=== PATIENT | female | born 1985 | race Caucasian/White ===

== ENCOUNTER 2017-09-30 16:03 | Emergency (ER) | payer OTHER ==
[~2017-09-30] VITALS: Ht 157.5 cm; Wt 99.8 kg
[2017-09-30 16:22] LABS: URINE BILIRUBIN 1+ (Negative); URINE BLOOD NEGATIVE (Negative); URINE CLARITY CLEAR; URINE COLOR YELLOW; URINE GLUCOSE-RANDOM* NEGATIVE (Negative); URINE KETONES NEGATIVE (Negative); URINE LEUKOCYTES NEGATIVE (Negative); URINE NITRITE NEGATIVE (Negative); URINE PROTEIN (DIPSTICK) NEGATIVE (Negative); URINE SPECIFIC GRAVITY 1.025 (1.005-1.035)
[2017-09-30 16:27] LABS: ICTOTEST (BILI CONFIRMATORY) Positive (Negative)
[2017-09-30 16:36] LABS: ABSOLUTE NEUTROPHILS 4.7 thou/uL (1.4-8.2); BASOPHILS 0.6 % (0.0-2.0); EOSINOPHILS 3.1 % (0.0-3.0); HEMATOCRIT 39.2 % (37.0-47.0); HEMOGLOBIN 13.7 gm/dL (12.0-15.0); LYMPHOCYTES 39.9 % (24.0-44.0); MCH 29.6 pg (26.0-34.0); MCHC 34.9 g/dL (28.0-37.0); MCV 84.7 fL (80.0-100.0); MONOCYTES 8.4 % (1.0-8.0); PLATELET COUNT 282 thou/uL (150-400); RBC 4.63 mil/uL (4.20-5.00); RDW 14.2 % (10.5-14.5); WBC 9.7 thou/uL (4.0-11.0)
[2017-09-30 17:19] LABS: CREATININE 0.7 mg/dL (0.6-1.0); POTASSIUM 3.4 mmol/L (3.5-5.1)
[2017-09-30] MEDS ORDERED: NORFLEX100 MG PO (17:22)
[2017-09-30] MEDS ORDERED: NAPROSYN500 MG PO (17:22)
[2017-09-30 17:30] LABS: ALBUMIN 3.5 g/dL (3.4-5.0); TOTAL BILIRUBIN 1.5 mg/dL (<0.1-1.0); TOTAL PROTEIN 7.7 g/dL (6.4-8.2)
== END 2017-09-30 17:36 | disposition home or self-care (01) ==
LOC: ER 16:03
PROVIDERS: Physician Assistant
DX: R94.5 Abnormal results of liver function studies (principal); S39.012A Strain of muscle, fascia and tendon of lower back, initial encounter; F17.210 Nicotine dependence, cigarettes, uncomplicated; X50.1XXA Overexertion from prolonged static or awkward postures, initial encounter; Y93.89 Activity, other specified; Y92.89 Other specified places as the place of occurrence of the external cause; Y99.8 Other external cause status

== ENCOUNTER 2017-12-18 07:57 | Emergency (ER) | payer OTHER ==
[~2017-12-18] VITALS: Ht 160 cm; Wt 99.8 kg
[~2017-12-18 07:57] MED LIST: NAPROSYN500 MG PO; NORFLEX100 MG PO
[2017-12-18] MEDS ORDERED: DOXYCYCLINE 10100 MG PO (08:15)
[2017-12-18] MEDS ORDERED: METHADOSE40 M1 PO (08:22)
== END 2017-12-18 08:59 | disposition home or self-care (01) ==
LOC: ER 07:57
DX: L03.114 Cellulitis of left upper limb (principal); F17.210 Nicotine dependence, cigarettes, uncomplicated

== ENCOUNTER 2018-03-16 08:04 | Emergency (ER) | payer OTHER ==
[~2018-03-16] VITALS: Ht 160 cm; Wt 99.8 kg
[~2018-03-16 08:04] MED LIST changes: +DOXYCYCLINE 10100 MG PO; +METHADOSE40 M1 PO
[2018-03-16 08:08] VITALS: BP 119/77
[2018-03-16] MEDS ORDERED: DOXYCYCLINE 10100 MG PO (08:21)
== END 2018-03-16 08:38 | disposition home or self-care (01) ==
LOC: ER 08:04
DX: L03.114 Cellulitis of left upper limb (principal); F17.210 Nicotine dependence, cigarettes, uncomplicated

== ENCOUNTER 2018-04-03 11:34 | Emergency (ER) | payer OTHER ==
[~2018-04-03] VITALS: Ht 160 cm; Wt 104.3 kg
[2018-04-03] MEDS ORDERED: CIPRODEX OTIC7.5 ML OTIC (11:51)
[2018-04-03] MEDS ORDERED: IBUPROFEN 800800 M1 PO (11:51)
[2018-04-03 11:59] VITALS: BP 123/72
== END 2018-04-03 12:18 | disposition home or self-care (01) ==
LOC: ER 11:34
DX: H60.91 Unspecified otitis externa, right ear (principal); F17.210 Nicotine dependence, cigarettes, uncomplicated

== ENCOUNTER 2018-05-22 18:00 | Emergency (ER) | payer OTHER ==
[~2018-05-22] VITALS: Ht 160 cm; Wt 91.6 kg
[~2018-05-22 18:00] MED LIST changes: +CIPRODEX OTIC7.5 ML OTIC; +IBUPROFEN 800800 M1 PO
[2018-05-22 18:09] VITALS: BP 137/87
== END 2018-05-22 20:44 | disposition home or self-care (01) ==
LOC: ER 18:00
DX: L02.411 Cutaneous abscess of right axilla (principal); F17.210 Nicotine dependence, cigarettes, uncomplicated

== ENCOUNTER 2018-07-31 08:38 | Emergency (ER) | payer OTHER ==
[~2018-07-31] VITALS: Ht 160 cm; Wt 90.7 kg
[2018-07-31 09:02] LABS: URINE BILIRUBIN NEGATIVE (Negative); URINE BLOOD 1+ (Negative); URINE CLARITY CLOUDY; URINE COLOR YELLOW; URINE GLUCOSE-RANDOM* NEGATIVE (Negative); URINE KETONES NEGATIVE (Negative); URINE PROTEIN (DIPSTICK) TRACE (Negative); URINE UROBILINOGEN 0.2 E.U./dl (0.2-1.0)
[2018-07-31 09:03] LABS: URINE LEUKOCYTES-REFLEX 3+ (Negative); URINE NITRITE-REFLEX POSITIVE (Negative)
[2018-07-31 09:07] LABS: CASTS None Seen /LPF (None Seen); CRYSTALS None Seen /LPF (None Seen); SQUAMOUS 4-10 Moderate /LPF (0-3); URINE WBC-REFLEX >25 Many /HPF (0-5)
[2018-07-31 09:08] LABS: BACTERIA-REFLEX >30 Many /HPF (None Seen); URINE RBC 0-2 Rare /HPF (0-2)
[2018-07-31] MEDS ORDERED: MACROBID 100 M100 M1 PO (09:24)
== END 2018-07-31 09:59 | disposition home or self-care (01) ==
LOC: ER 08:38
PROVIDERS: Student in an Organized Health Care Education/Training Program
DX: N39.0 Urinary tract infection, site not specified (principal); F17.210 Nicotine dependence, cigarettes, uncomplicated

== ENCOUNTER 2018-09-05 10:37 | Emergency (ER) | payer OTHER ==
[~2018-09-05] VITALS: Ht 160 cm; Wt 90.7 kg
[~2018-09-05 10:37] MED LIST changes: +MACROBID 100 M100 M1 PO
[2018-09-05 11:36] LABS: URINE BILIRUBIN NEGATIVE (Negative); URINE BLOOD TRACE (Negative); URINE CLARITY CLEAR; URINE COLOR YELLOW; URINE GLUCOSE-RANDOM* NEGATIVE (Negative); URINE KETONES NEGATIVE (Negative); URINE PROTEIN (DIPSTICK) TRACE (Negative); URINE SPECIFIC GRAVITY 1.015 (1.005-1.035)
[2018-09-05 11:37] LABS: URINE LEUKOCYTES-REFLEX 3+ (Negative); URINE NITRITE-REFLEX POSITIVE (Negative)
[2018-09-05 11:42] LABS: BACTERIA-REFLEX >30 Many /HPF (None Seen); CASTS None Seen /LPF (None Seen); CRYSTALS None Seen /LPF (None Seen); SQUAMOUS 0-3 Few /LPF (0-3); URINE RBC 0-2 Rare /HPF (0-2); WBC CLUMPS Moderate (None Seen)
[2018-09-05 12:31] LABS: ABSOLUTE NEUTROPHILS 2.9 thou/uL (1.4-8.2); BASOPHILS 0.4 % (0.0-2.0); EOSINOPHILS 3.3 % (0.0-3.0); HEMATOCRIT 39.7 % (37.0-47.0); HEMOGLOBIN 13.8 gm/dL (12.0-15.0); LYMPHOCYTES 43.4 % (24.0-44.0); MCH 29.5 pg (26.0-34.0); MCHC 34.7 g/dL (28.0-37.0); MCV 85.1 fL (80.0-100.0); MONOCYTES 8.7 % (1.0-8.0); PLATELET COUNT 319 thou/uL (150-400); POLYS 44.2 % (36.0-66.0); RBC 4.66 mil/uL (4.20-5.00); RDW 14.2 % (10.5-14.5); WBC 6.5 thou/uL (4.0-11.0)
[2018-09-05 12:40] LABS: CREATININE 0.6 mg/dL (0.6-1.0)
[2018-09-05] MEDS ORDERED: FLAGYL500 M1 PO (14:46)
[2018-09-05] MEDS ORDERED: PRENATAL ONE T1 EACH PO (14:46)
[2018-09-05] MEDS ORDERED: KEFLEX500 M1 PO (14:47)
[2018-09-05 14:53] VITALS: BP 117/84
== END 2018-09-05 15:07 | disposition home or self-care (01) ==
LOC: ER 10:37
PROVIDERS: Physician Assistant
DX: O23.41 Unspecified infection of urinary tract in pregnancy, first trimester (principal); N76.0 Acute vaginitis; B96.89 Other specified bacterial agents as the cause of diseases classified elsewhere; F17.210 Nicotine dependence, cigarettes, uncomplicated; Z3A.01 Less than 8 weeks gestation of pregnancy

== ENCOUNTER 2018-10-02 18:13 | Emergency (ER) | payer OTHER ==
[~2018-10-02] VITALS: Ht 160 cm; Wt 90.7 kg
[~2018-10-02 18:13] MED LIST changes: +FLAGYL500 M1 PO; +KEFLEX500 M1 PO; +PRENATAL ONE T1 EACH PO
[2018-10-02 18:46] LABS: URINE CLARITY CLEAR; URINE COLOR YELLOW
[2018-10-02 18:47] LABS: URINE BILIRUBIN NEGATIVE (Negative); URINE BLOOD 1+ (Negative); URINE GLUCOSE-RANDOM* NEGATIVE (Negative); URINE KETONES NEGATIVE (Negative); URINE LEUKOCYTES-REFLEX NEGATIVE (Negative); URINE NITRITE-REFLEX NEGATIVE (Negative); URINE PROTEIN (DIPSTICK) NEGATIVE (Negative); URINE SPECIFIC GRAVITY 1.025 (1.005-1.035); URINE UROBILINOGEN 0.2 E.U./dl (0.2-1.0)
[2018-10-02 18:48] LABS: BASOPHILS 0.7 % (0.0-2.0); EOSINOPHILS 0.9 % (0.0-3.0); HEMATOCRIT 38.3 % (37.0-47.0); HEMOGLOBIN 13.3 gm/dL (12.0-15.0); LYMPHOCYTES 34.2 % (24.0-44.0); MCH 29.3 pg (26.0-34.0); MCHC 34.6 g/dL (28.0-37.0); MCV 84.6 fL (80.0-100.0); MONOCYTES 5.9 % (1.0-8.0); PLATELET COUNT 347 thou/uL (150-400); POLYS 58.3 % (36.0-66.0); RBC 4.53 mil/uL (4.20-5.00); RDW 13.8 % (10.5-14.5); WBC 12.1 thou/uL (4.0-11.0)
[2018-10-02 18:50] LABS: SQUAMOUS 4-10 Moderate /LPF (0-3); URINE RBC 0-2 Rare /HPF (0-2); URINE WBC-REFLEX 0-5 Rare /HPF (0-5)
[2018-10-02 18:51] LABS: CASTS None Seen /LPF (None Seen); CRYSTALS None Seen /LPF (None Seen)
[2018-10-02 18:57] LABS: CALCIUM 9.4 mg/dL (8.5-10.1); CREATININE 0.6 mg/dL (0.6-1.0); POTASSIUM 3.3 mmol/L (3.5-5.1)
[2018-10-02 19:29] LABS: URINE BILIRUBIN NEGATIVE (Negative); URINE BLOOD TRACE (Negative); URINE CLARITY CLEAR; URINE COLOR YELLOW; URINE GLUCOSE-RANDOM* NEGATIVE (Negative); URINE KETONES NEGATIVE (Negative); URINE NITRITE-REFLEX NEGATIVE (Negative); URINE PROTEIN (DIPSTICK) NEGATIVE (Negative); URINE SPECIFIC GRAVITY 1.015 (1.005-1.035); URINE UROBILINOGEN 0.2 E.U./dl (0.2-1.0)
[2018-10-02 19:30] LABS: URINE LEUKOCYTES-REFLEX NEGATIVE (Negative)
[2018-10-02 21:15] VITALS: BP 126/67
== END 2018-10-02 21:16 | disposition home or self-care (01) ==
LOC: ER 18:13
PROVIDERS: Physician Assistant
DX: O20.0 Threatened abortion (principal); F17.210 Nicotine dependence, cigarettes, uncomplicated; Z3A.10 10 weeks gestation of pregnancy

== ENCOUNTER 2019-01-28 15:26 | Emergency (ER) | payer OTHER ==
[~2019-01-28] VITALS: Ht 160 cm; Wt 102.5 kg
[2019-01-28 15:28] VITALS: BP 135/69
[2019-01-28 15:51] LABS: URINE BILIRUBIN NEGATIVE (Negative); URINE BLOOD NEGATIVE (Negative); URINE CLARITY SL CLOUDY; URINE COLOR YELLOW; URINE GLUCOSE-RANDOM* NEGATIVE (Negative); URINE KETONES NEGATIVE (Negative); URINE LEUKOCYTES-REFLEX TRACE (Negative); URINE NITRITE-REFLEX NEGATIVE (Negative); URINE PROTEIN (DIPSTICK) NEGATIVE (Negative)
== END 2019-01-28 18:01 | disposition home or self-care (01) ==
LOC: ER 15:26
PROVIDERS: Physician Assistant
DX: O99.89 Other specified diseases and conditions complicating pregnancy, childbirth and the puerperium (principal); R46.89 Other symptoms and signs involving appearance and behavior; O99.333 Smoking (tobacco) complicating pregnancy, third trimester; Z3A.28 28 weeks gestation of pregnancy

== ENCOUNTER 2019-03-06 18:50 | Emergency (ER) | payer OTHER ==
[~2019-03-06] VITALS: Ht 160 cm; Wt 99.3 kg
[2019-03-06 19:44] LABS: URINE BILIRUBIN NEGATIVE (Negative); URINE BLOOD NEGATIVE (Negative); URINE CLARITY CLEAR; URINE COLOR YELLOW; URINE GLUCOSE-RANDOM* NEGATIVE (Negative); URINE KETONES NEGATIVE (Negative); URINE LEUKOCYTES-REFLEX NEGATIVE (Negative); URINE NITRITE-REFLEX NEGATIVE (Negative); URINE PROTEIN (DIPSTICK) NEGATIVE (Negative); URINE SPECIFIC GRAVITY 1.025 (1.005-1.035)
[2019-03-06 20:42] VITALS: BP 125/69
== END 2019-03-06 21:07 | disposition home or self-care (01) ==
LOC: ER 18:50
PROVIDERS: Nurse Practitioner
DX: Z34.03 Encounter for supervision of normal first pregnancy, third trimester (principal); F17.210 Nicotine dependence, cigarettes, uncomplicated

== ENCOUNTER 2019-04-17 01:58 | Emergency (ER) | payer OTHER ==
[~2019-04-17] VITALS: Ht 160 cm; Wt 97.1 kg
[2019-04-17 02:57] LABS: URINE BILIRUBIN 1+ (Negative); URINE BLOOD 3+ (Negative); URINE CLARITY SL CLOUDY; URINE COLOR YELLOW; URINE GLUCOSE-RANDOM* NEGATIVE (Negative); URINE KETONES NEGATIVE (Negative); URINE NITRITE-REFLEX NEGATIVE (Negative); URINE PROTEIN (DIPSTICK) 1+ (Negative); URINE UROBILINOGEN >= 8.0 E.U./dl (0.2-1.0)
[2019-04-17 02:59] LABS: ICTOTEST (BILI CONFIRMATORY) Positive (Negative); URINE LEUKOCYTES-REFLEX 1+ (Negative)
[2019-04-17 03:03] LABS: AMORPHOUS URATES Few /LPF (None Seen); CASTS None Seen /LPF (None Seen); MUCUS 0-3 Light strn/LPF (None Seen); SQUAMOUS >10 Many /LPF (0-3)
[2019-04-17 03:04] LABS: BACTERIA-REFLEX 1-9 Few /HPF (None Seen); CRYSTALS None Seen /LPF (None Seen); URINE RBC 3-10 Few /HPF (0-2); URINE WBC-REFLEX 6-15 Few /HPF (0-5)
[2019-04-17 03:04] LABS: BASOPHILS 0.4 % (0.0-2.0); EOSINOPHILS 1.3 % (0.0-3.0); HEMATOCRIT 35.2 % (37.0-47.0); HEMOGLOBIN 11.6 gm/dL (12.0-15.0); MCH 27.1 pg (26.0-34.0); MCHC 33.1 g/dL (28.0-37.0); PLATELET COUNT 480 thou/uL (150-400); POLYS 73.3 % (36.0-66.0); RBC 4.29 mil/uL (4.20-5.00); RDW 15.2 % (10.5-14.5); WBC 8.2 thou/uL (4.0-11.0)
[2019-04-17 03:12] LABS: CALCIUM 8.7 mg/dL (8.5-10.1); CREATININE 0.8 mg/dL (0.6-1.0); POTASSIUM 3.4 mmol/L (3.5-5.1)
[2019-04-17 03:18] LABS: ALBUMIN 3.2 g/dL (3.4-5.0); DIRECT BILIRUBIN 0.4 mg/dL (<0.1-0.3); TOTAL BILIRUBIN 0.7 mg/dL (<0.1-1.0); TOTAL PROTEIN 7.6 g/dL (6.4-8.2)
[2019-04-17] MEDS ORDERED: NORCO 5-325 TA1 EAC1 PO (06:08)
[2019-04-17 06:32] VITALS: BP 128/83
== END 2019-04-17 06:33 | disposition home or self-care (01) ==
LOC: ER 01:58
PROVIDERS: Emergency Medicine
DX: K80.20 Calculus of gallbladder without cholecystitis without obstruction (principal); F17.210 Nicotine dependence, cigarettes, uncomplicated

== ENCOUNTER 2019-04-26 00:16 | Inpatient (IN) | payer OTHER ==
[~2019-04-26] VITALS: Ht 160 cm; Wt 96.2 kg
[2019-04-26] VITALS (8 sets, daily range): BP systolic 141–161; BP diastolic 82–99
[~2019-04-26 00:16] MED LIST changes: +NORCO 5-325 TA1 EAC1 PO
[2019-04-26 00:45] LABS: URINE BILIRUBIN NEGATIVE (Negative); URINE BLOOD TRACE (Negative); URINE CLARITY CLEAR; URINE COLOR YELLOW; URINE GLUCOSE-RANDOM* NEGATIVE (Negative); URINE KETONES NEGATIVE (Negative); URINE NITRITE-REFLEX NEGATIVE (Negative); URINE PROTEIN (DIPSTICK) NEGATIVE (Negative); URINE SPECIFIC GRAVITY <= 1.005 (1.005-1.035); URINE UROBILINOGEN 0.2 E.U./dl (0.2-1.0)
[2019-04-26 00:46] LABS: URINE LEUKOCYTES-REFLEX 1+ (Negative)
[2019-04-26 00:54] LABS: CASTS None Seen /LPF (None Seen); SQUAMOUS 0-3 Few /LPF (0-3); URINE WBC-REFLEX 6-15 Few /HPF (0-5)
[2019-04-26 00:55] LABS: CRYSTALS None Seen /LPF (None Seen); URINE RBC 0-2 Rare /HPF (0-2)
[2019-04-26 01:01] LABS: ABSOLUTE NEUTROPHILS 4.6 thou/uL (1.4-8.2); BASOPHILS 0.5 % (0.0-2.0); EOSINOPHILS 2.2 % (0.0-3.0); HEMOGLOBIN 11.6 gm/dL (12.0-15.0); LYMPHOCYTES 41.9 % (24.0-44.0); MCH 26.9 pg (26.0-34.0); MCV 81.5 fL (80.0-100.0); MONOCYTES 6.9 % (1.0-8.0); PLATELET COUNT 414 thou/uL (150-400); POLYS 48.5 % (36.0-66.0); RBC 4.29 mil/uL (4.20-5.00); RDW 15.4 % (10.5-14.5); WBC 9.5 thou/uL (4.0-11.0)
[2019-04-26 01:09] LABS: ANION GAP 10 mmol/L (7-16); BUN 11 mg/dL (7-18); CALCIUM 8.6 mg/dL (8.5-10.1); CHLORIDE 103 mmol/L (98-107); CO2 30 mmol/L (21-32); CREATININE 0.8 mg/dL (0.6-1.0); GLUCOSE 93 mg/dL (74-106); POTASSIUM 3.2 mmol/L (3.5-5.1); SODIUM 143 mmol/L (136-145)
[2019-04-26 01:19] LABS: ALBUMIN 3.4 g/dL (3.4-5.0); LIPASE 103 U/L (73-393); SGOT 71 U/L (15-37); SGPT 53 U/L (30-65); TOTAL BILIRUBIN 0.3 mg/dL (<0.1-1.0); TOTAL PROTEIN 7.6 g/dL (6.4-8.2); TROPONIN-I <0.06 ng/mL (<0.06)
--- NOTE | 2019-04-26 08:50 | EKG ---
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1985 Requested By: Leopoldo Schulz Order Number: [id number] MD: Alcon Jaffe Measurements Intervals [place] Rate: 81 P: 51 OK: 162 QRS: 25 QRSD: 97 T: 36 QT: 417 QTc: 484 Interpretive Statements Sinus rhythm No significant abnormality No previous ECG available for comparison Electronically Signed On 04-26-2019 8:50:43 CDT by Alcon Jaffe [email or web address] ��������������������������������������������� <ELECTRONICALLY SIGNED> ���������������������������������������� By: Alcon Jaffe MD, [facility] ��������������������������������������������� 04/26/19 0850 0101 0 Alcon Jaffe MD, FACC /EPI
--- NOTE | 2019-04-26 08:50 | EKG ---
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1985 Requested By: Leopoldo Schulz Order Number: [id number] MD: Alcon Jaffe Measurements Intervals [place] Rate: 79 P: 62 HI: 175 QRS: 14 QRSD: 96 T: 42 QT: 427 QTc: 490 Interpretive Statements Sinus rhythm No significant abnormality No ECG available for comparison Electronically Signed On 04-26-2019 8:50:04 CDT by Alcon Jaffe [email or web address] ��������������������������������������������� <ELECTRONICALLY SIGNED> ���������������������������������������� By: Alcon Jaffe MD, [facility] ��������������������������������������������� 04/26/19 0850 0049 0049 Alcon Jaffe MD, FACC /EPI
[2019-04-27 04:10] VITALS: BP 148/89
[2019-04-27 05:41] LABS: HEMATOCRIT 35.4 % (37.0-47.0); HEMOGLOBIN 11.6 gm/dL (12.0-15.0); MCH 26.5 pg (26.0-34.0); MCHC 32.7 g/dL (28.0-37.0); MCV 81.3 fL (80.0-100.0); RBC 4.36 mil/uL (4.20-5.00); RDW 15.9 % (10.5-14.5); WBC 10.2 thou/uL (4.0-11.0)
[2019-04-27 06:06] LABS: CALCIUM 8.8 mg/dL (8.5-10.1); CREATININE 0.5 mg/dL (0.6-1.0); POTASSIUM 4.1 mmol/L (3.5-5.1); TOTAL BILIRUBIN 0.4 mg/dL (<0.1-1.0)
[2019-04-27 07:06] VITALS: BP 146/78
--- NOTE | 2019-04-27 08:29 | NUR ---
PATIENT ARRIVED ON UNIT AT 1930 VIA BED FROM OR. PATIENT ALERT AND ORIENTED BUT VERY SAD. PATIENT CRYING OFF AND ON DURING NIGHT. MISSES HER CHILDREN. HAD LAST CHILD A MONTH AGO. FOUR SMALL INCISIONS ON ABD WITH DERMABOND. C/O PAIN, MED GIVEN. NPO SINCE [place] FOR ERCP TODAY. MOUTH DRY, GIVEN SWABS TO WET MOUTH. UP TO BATHROOM WITH SBA. PASSING FLATUS. SLEPT OFF AND ON DURING NIGHT.
[2019-04-27 14:41] VITALS: BP 146/78
[2019-04-27 15:06] VITALS: BP 146/78
--- NOTE | 2019-04-27 18:33 | NUR ---
DC ODERS RECEIVED. IV REMOVED FROM R AC, FOLLOW UP INSTRUCTIONS REVEIWED WITH PT. PT TRANSPORTED BY W/C TO MAIN ENTRANCE.
--- NOTE | 2019-04-28 06:26 | O ---
[facility] [place] [address] OPERATIVE REPORT Name: STACY BLUE Room #: 432-P [facility] IN M.R.#: [id number] Admission: 04/26/19 ������������������ Attend Phys: Gabrielle Yepez MD Discharge: 04/27/19 ������������������ Date of : 87 Report #: [id number] THIS REPORT FOR: //name// CC: Fran ZAMORA PCP DATE OF SERVICE: 04/26/2019 PREOPERATIVE DIAGNOSIS: Acute cholecystitis. POSTOPERATIVE DIAGNOSIS: Acute cholecystitis with choledocholithiasis. PROCEDURE: Laparoscopic cholecystectomy with intraoperative cholangiogram. SURGEON: Onesimo Joseph MD ANESTHESIA: General. ESTIMATED BLOOD LOSS: Minimal. SPECIMEN: Gallbladder. DESCRIPTION OF PROCEDURE: After informed consent was obtained, the patient was brought to the operating room and placed supine. SCDs were placed and working, preoperative antibiotics were administered, general anesthesia was induced. The abdomen was prepped and draped in the usual sterile fashion. A 10 mm incision was made below the umbilicus. Fascia was incised and a trocar was placed. Pneumoperitoneum was established. Three right upper quadrant 5 mm ports were placed. Gallbladder was grasped at the fundus and retracted cephalad. Infundibulum was grasped and retracted laterally. I dissected out the cystic duct and cystic artery. Cystic duct was clipped. Ductotomy was made. Cholangiogram catheter was inserted. Cholangiogram was performed. This demonstrated filling of the cystic duct, common bile duct, bifurcation of the hepatics, a dilated common bile duct and a filling defect in the distal common bile duct. The cholangiogram catheter was removed. The cystic duct was ligated with leaving 2 clips on the remaining duct. The cystic artery was clipped and ligated leaving one clip on the remaining artery. Gallbladder was then taken off the liver bed with electrocautery. It was placed into an Endopouch and removed. The fascia was then closed with a [id number] 0 Vicryl. Skin was closed with 4-0 Monocryl. Incisions were sealed with Dermabond. COMPLICATIONS: None. [facility] [address] [place] [address] OPERATIVE REPORT Name: STACY BLUE Room #: 432-P [facility] IN .R.#: [id number] Admission: 04/26/19 ������������������ Attend Phys: Gabrielle Yepez MD Discharge: 04/27/19 ������������������ Date of : 87 Report #: [id number] DISPOSITION: The patient was taken to recovery in satisfactory condition. ��������������������������������������������� <ELECTRONICALLY SIGNED> ���������������������������������������� By: Onesimo Joseph MD ��������������������������������������������� 04/28/19 0626 1810 12 Onesimo Joseph MD /nt
--- NOTE | 2019-04-28 14:43 | PATH ---
[facility] [address] [place] [address] PATHOLOGY RPT PROCEDURE Name: STACY KRUGER Room #: 432-P [facility] IN M.R.#: [id number] ������������������ Admission: 04/26/19 ������������������ Date of : 87 Discharge: 04/27/19 Report #: [id number] Path Case #: [id number] [facility] Accession Number: [id number] . 01 Material submitted: . gallbladder - GALLBLADDER . 01 Clinical history: . Acute cholecystitis . 02 Diagnosis: Gallbladder, cholecystectomy: - Mild chronic cholecystitis. - Cholelithiasis. - Incidental reactive lymph node. (IUV/db; 04/28/2019) LBQ/04/28/2019 . 02 Electronically signed: . Aleida Metzger MD, Pathologist NPI- [id number] . 01 Gross description: . The specimen is received in formalin labeled "Stacy Kruger, gallbladder" and consists of an intact green-mcneal, smooth, and shiny gallbladder measuring 12.8 cm in length and up to 4.5 cm in diameter. The margin is inked black. Opening reveals a lumen filled with viscous green bile and multiple yellow multifaceted calculi measuring between 1.0 and 0.9 cm (8.5 x 6.5 x 1.0 cm in aggregate). The mucosa is green with scattered yellow flecks with an average wall thickness of 0.1 cm. No masses are identified. Adjacent the gallbladder neck is a disrupted lymph node candidate measuring 0.8 x 0.7 cm. [employer] sections are submitted in A1. (SDY; 04/27/2019) SYU/SYU . 02 Pathologist provided ICD-10: K80.10 . 02 CPT . 237458 Specimen Comment: A courtesy copy of this report has been sent to Specimen Comment: [phone], . Specimen Comment: Report sent to / DR EASLEY Performed at: [address] [facility], [place] [id number] [place] [address] PATHOLOGY RPT PROCEDURE Name: STACY KRUGER MEGAN Room #: 432-P [facility] IN M.R.#: [id number] ������������������ Admission: 04/26/19 ������������������ Date of : 87 Discharge: 04/27/19 Report #: [id number] Path Case #: [id number] MD Moiz Slade MD Phone: [phone] Performed at: [address] [id number] MD Aleida Metzger MD Phone: [phone]
== END 2019-04-27 15:36 | disposition home or self-care (01) | DRG 418 ==
LOC: ER 00:16 → EROBS 02:50 → 4E 02:50 → EROBS 07:23 → TBA 16:22 → 4E 19:53
PROVIDERS: Emergency Medicine; Nurse Practitioner Family; ADMIT Internal Medicine
PROC: BF131ZZ Fluoroscopy of Gallbladder and Bile Ducts using Low Osmolar Contrast (ICD-10-PCS; principal; 2019-04-26)
PROC: 0FT44ZZ Resection of Gallbladder, Percutaneous Endoscopic Approach (ICD-10-PCS; principal; 2019-04-26)
DX: K80.62 Calculus of gallbladder and bile duct with acute cholecystitis without obstruction (principal); N39.0 Urinary tract infection, site not specified; F11.20 Opioid dependence, uncomplicated; F17.210 Nicotine dependence, cigarettes, uncomplicated; Z79.899 Other long term (current) drug therapy
CPT/HCPCS: 10084; 50010; 50101; 50411; 50555; 51489; 51975; 52265; 52266; 53307; 53314; 54118; 55245; 55317; 56462; 56525; 56526; 62110; 62900; 70005

== ENCOUNTER 2019-04-29 19:49 | Inpatient (IN) | payer OTHER ==
[~2019-04-29] VITALS: Ht 160 cm; Wt 97.1 kg
[~2019-04-29 19:49] MED LIST changes: -ONDANSETRON HCL4 M2 PO; -PROTONIX40 M1 PO
[2019-04-29 19:52] VITALS: BP 183/96
[2019-04-29 21:15] LABS: ABSOLUTE NEUTROPHILS 8.3 thou/uL (1.4-8.2); BASOPHILS 0.4 % (0.0-2.0); EOSINOPHILS 0.4 % (0.0-3.0); HEMATOCRIT 36.3 % (37.0-47.0); HEMOGLOBIN 12.1 gm/dL (12.0-15.0); LYMPHOCYTES 10.4 % (24.0-44.0); MCH 26.9 pg (26.0-34.0); MCHC 33.2 g/dL (28.0-37.0); MCV 81.1 fL (80.0-100.0); MONOCYTES 2.8 % (1.0-8.0); PLATELET COUNT 415 thou/uL (150-400); RBC 4.48 mil/uL (4.20-5.00); RDW 15.6 % (10.5-14.5); WBC 9.7 thou/uL (4.0-11.0)
[2019-04-29 21:25] LABS: CALCIUM 8.9 mg/dL (8.5-10.1); CREATININE 0.6 mg/dL (0.6-1.0)
[2019-04-29 21:32] LABS: ALBUMIN 3.2 g/dL (3.4-5.0); TOTAL BILIRUBIN 0.3 mg/dL (<0.1-1.0); TOTAL PROTEIN 7.4 g/dL (6.4-8.2)
[2019-04-29 22:31] VITALS: BP 183/96
[2019-04-29 22:36] VITALS: BP 165/89
[2019-04-29 23:00] VITALS: BP 185/100
[2019-04-29 23:10] LABS: URINE BILIRUBIN NEGATIVE (Negative); URINE BLOOD NEGATIVE (Negative); URINE CLARITY CLEAR; URINE COLOR YELLOW; URINE GLUCOSE-RANDOM* NEGATIVE (Negative); URINE KETONES NEGATIVE (Negative); URINE LEUKOCYTES-REFLEX NEGATIVE (Negative); URINE NITRITE-REFLEX NEGATIVE (Negative); URINE PROTEIN (DIPSTICK) NEGATIVE (Negative); URINE UROBILINOGEN 0.2 E.U./dl (0.2-1.0)
--- NOTE | 2019-04-30 04:42 | NUR ---
PATIENT ARRIVED ON UNIT AT 2300, VIA CART FROM ED ACCOMPANIED BY ED PERSONEL. PATIENT DROWSY BUT ORIENTED X4. C/O PAIN IN ABD AND BACK. MED GIVEN. C/O NAUSEA AND VOMITING, MED GIVEN. STATES MEDS DON'T LAST VERY LONG. PATIENT UP WITH ASSIST. SLEPT OFF AND ON DURING NIGHT.
[2019-04-30 05:20] LABS: CALCIUM 8.7 mg/dL (8.5-10.1); CREATININE 0.6 mg/dL (0.6-1.0); POTASSIUM 3.3 mmol/L (3.5-5.1)
[2019-04-30 16:11] VITALS: BP 130/90
--- NOTE | 2019-04-30 17:47 | NUR ---
PT A&OX4, AMBULATES SELF IN ROOM. IV RESTARTED IN R FA. PT HAVING NAUSEA AND ABD PAIN. PT ON A HIGH DOSE OF METHADONE [address] SOLO TRIED TO EXPLAIN TO PT SHE CAN NOT HAVE HER METHADONE AND PAIN MEDS, PT WAS GIVEN A CHOICE OF PAIN OR METHADONE, PT CHOSE HER METHADONE. HER SISTER AND KIDS VISITED TODAY. PT STARTED ON PRTONIX, TRAMADOL ALSO ORDERED PRN.WILL CONT POC.
[2019-04-30 20:05] VITALS: BP 161/108
--- NOTE | 2019-05-01 05:37 | NUR ---
A/O, calm and cooperative. complains of gas floating in stomache. [employer] PROFESSOR called and medication given, patient has been staying in bed with eyes closed. vss, afebrile.
[2019-05-01 07:22] VITALS: BP 137/83
[2019-05-01] MEDS ORDERED: PROTONIX40 M1 PO (08:59)
[2019-05-01] MEDS ORDERED: ONDANSETRON HCL4 M2 PO (08:59)
[2019-05-01 11:25] VITALS: BP 137/83
== END 2019-05-01 12:38 | disposition home or self-care (01) | DRG 439 ==
LOC: ER 19:49 → EROBS 21:51 → 4E 22:55
PROVIDERS: Emergency Medicine; Nurse Practitioner Family; ADMIT Hospitalist
DX: K85.90 Acute pancreatitis without necrosis or infection, unspecified (principal); F11.20 Opioid dependence, uncomplicated; F17.210 Nicotine dependence, cigarettes, uncomplicated; Z90.49 Acquired absence of other specified parts of digestive tract
CPT/HCPCS: 10084

== ENCOUNTER → 2019-04-29 | Outpatient (CLI) | payer OTHER ==
[~2019-04-29] MED LIST changes: +ONDANSETRON HCL4 M2 PO; +PROTONIX40 M1 PO
--- NOTE | ~2019-04-29 | P ---
[facility] [place] [address] PROCEDURE REPORT Name: STACY BLUE Room #: [facility]#: [id number] Admission: 04/29/19 ������������������ Attend Phys: Ney Lai Discharge: ������������������ Date of : [birth year] Report #: [id number] THIS REPORT FOR: //name// CC: Ney Alcazar [facility] physician/PCP Onesimo Joseph MD DATE OF SERVICE: 04/29/2019 PROCEDURE PERFORMED: ERCP with sphincterotomy and balloon sweeps. HISTORY OF PRESENT ILLNESS: The patient is a 33-year-old female who was admitted on 04/26/2019 for right upper quadrant abdominal pain. She underwent an ultrasound of the abdomen with cholelithiasis and increased common bile duct prominence noted. A CT scan of the abdomen was also performed on 04/26/2019 showing no obvious common bile duct stone. No acute changes. The patient underwent a laparoscopic cholecystectomy by Dr. Onesimo Joseph on 04/26/2019. Intraoperative cholangiogram showed a solitary mobile distal common bile duct stone, 4-5 mm, presumably choledocholithiasis. Because of this, plan is for ERCP. Of note, the patient's bilirubin has been normal throughout this time. DESCRIPTION OF PROCEDURE: The risks and benefits of the procedure were explained to the patient, those risks including, but not limited to bleeding, perforation, the risk of sedation as well as the potential risk for posterior superior pancreatitis. She understood these risks and gave informed consent. The procedure was performed in the OR under general anesthesia. The patient was given 1 gram of Ancef prior to the procedure. Her test was negative today. She was also given 50 mg indomethacin rectal suppository prior to the procedure. Next, using an Olympus side-viewing ERCP scope, the scope was placed in the patient's mouth and advanced under direct vision through the esophagus, stomach and into the second portion at which point, the major papilla was identified and normal in appearance. There was evidence of bile flow from the papilla. Next, using a Tavo-Cook 0.025 dome-tipped sphincterotome catheter, the common bile duct was cannulated and a cholangiogram was obtained. The duct was dilated to approximately 10-11 mm with a normal smooth taper. No obvious filling defect was noted. The intrahepatic ducts were mildly dilated. At this point, a sphincterotomy was performed without difficulty. Good bile drainage was noted after sphincterotomy. Next, the sphincterotome catheter was removed and a balloon catheter was advanced over the wire. I then performed multiple balloon sweeps, no obvious stone was noted; however, during the first sweep, it is possible a stone was removed as this was out of the field of view when the balloon passed. Balloon occlusion cholangiogram was then obtained. No obvious stone was noted. At this point, I did remove the wire and the balloon catheter and placed a basket catheter. I then proceeded with several sweeps of the common bile duct with basket and no stones were noted or debris. Again, good [address] [address] PROCEDURE REPORT Name: STACY BLUE Room #: DOMI [place]#: [id number] Admission: 04/29/19 ������������������ Attend Phys: Ney Lai Discharge: ������������������ Date of : 87 Report #: [id number] bile drainage was noted and balloon cholangiogram was negative. At this point, the scope was then withdrawn and the procedure terminated. The patient tolerated the procedure well. IMPRESSION: Dilated common bile duct. No obvious filling defect seen on exam today. Possibly the patient passed the stone. However, during the first balloon sweep, it is possible the stone was removed. Several different balloon sweeps were performed as well as sweeps with the wire basket and balloon occlusion cholangiogram did not show any obvious filling defect. RECOMMENDATIONS: Observe the patient post-procedure. Thank you for allowing me to participate in her care. ��������������������������������������������� ���������������������������������������� By: ��������������������������������������������� 1133 2055 Ney Alcazar MD /nt
== END | disposition home or self-care (01) ==
LOC: OR 05:44 → GI 05:46 → TBA 07:53 → GI 07:53 → TBA 08:29 → EDSTATUS 08:31 → GI 08:32
DX: K83.8 Other specified diseases of biliary tract (principal); Z90.49 Acquired absence of other specified parts of digestive tract; F17.210 Nicotine dependence, cigarettes, uncomplicated; Z87.19 Personal history of other diseases of the digestive system; Z87.440 Personal history of urinary (tract) infections; Z79.899 Other long term (current) drug therapy; Z98.890 Other specified postprocedural states
CPT/HCPCS: 62110; 62900; 70005

== ENCOUNTER 2020-03-21 12:56 | Emergency (ER) | payer OTHER ==
[~2020-03-21] VITALS: Ht 233.7 cm; Wt 81.7 kg
[~2020-03-21 12:56] MED LIST changes: +ONDANSETRON HCL4 M2 PO; +PROTONIX40 M1 PO
[2020-03-21 13:17] LABS: URINE BILIRUBIN NEGATIVE (Negative); URINE BLOOD TRACE (Negative); URINE CLARITY CLOUDY; URINE COLOR YELLOW; URINE GLUCOSE-RANDOM* NEGATIVE (Negative); URINE KETONES NEGATIVE (Negative); URINE LEUKOCYTES-REFLEX TRACE (Negative); URINE NITRITE-REFLEX NEGATIVE (Negative); URINE PROTEIN (DIPSTICK) NEGATIVE (Negative); URINE SPECIFIC GRAVITY >= 1.030 (1.005-1.035)
[2020-03-21 15:19] VITALS: BP 121/74
== END 2020-03-21 15:19 | disposition home or self-care (01) ==
LOC: ER 12:56
PROVIDERS: Physician Assistant
DX: N89.8 Other specified noninflammatory disorders of vagina (principal); R35.0 Frequency of micturition; M54.5 Low back pain; R39.15 Urgency of urination; F17.210 Nicotine dependence, cigarettes, uncomplicated; Z90.49 Acquired absence of other specified parts of digestive tract; Z79.899 Other long term (current) drug therapy

== ENCOUNTER 2020-03-29 08:08 | Emergency (ER) | payer OTHER ==
[~2020-03-29] VITALS: Ht 157.5 cm; Wt 113.4 kg
[2020-03-29] MEDS ORDERED: TOBRAMYCIN SULFA5 M1 OPHTHALMIC (10:28)
[2020-03-29 10:51] VITALS: BP 121/73
== END 2020-03-29 10:51 | disposition home or self-care (01) ==
LOC: ER 08:08
DX: H10.9 Unspecified conjunctivitis (principal); F17.210 Nicotine dependence, cigarettes, uncomplicated; Z90.49 Acquired absence of other specified parts of digestive tract; Z79.899 Other long term (current) drug therapy

== ENCOUNTER 2020-04-03 07:45 | Emergency (ER) | payer OTHER ==
[~2020-04-03] VITALS: Ht 160 cm; Wt 99.8 kg
[~2020-04-03 07:45] MED LIST changes: +TOBRAMYCIN SULFA5 M1 OPHTHALMIC
[2020-04-03 07:53] VITALS: BP 133/85
[2020-04-03 08:03] LABS: URINE BILIRUBIN NEGATIVE (Negative); URINE BLOOD 3+ (Negative); URINE COLOR YELLOW; URINE GLUCOSE-RANDOM* NEGATIVE (Negative); URINE KETONES NEGATIVE (Negative); URINE PROTEIN (DIPSTICK) 3+ (Negative)
[2020-04-03 08:04] LABS: URINE LEUKOCYTES-REFLEX 3+ (Negative); URINE NITRITE-REFLEX POSITIVE (Negative)
[2020-04-03 08:05] LABS: URINE CLARITY SL HAZY
[2020-04-03 08:44] LABS: SQUAMOUS >10 Many /LPF (0-3)
[2020-04-03] MEDS ORDERED: KEFLEX500 M1 PO (08:44)
[2020-04-03] MEDS ORDERED: PYRIDIUM200 MG PO (08:44)
[2020-04-03 08:45] LABS: CASTS None Seen /LPF (None Seen); URINE RBC 3-10 Few /HPF (0-2); URINE WBC-REFLEX >25 Many /HPF (0-5)
[2020-04-03 08:46] LABS: CRYSTALS None Seen /LPF (None Seen); WBC CLUMPS Many (None Seen)
== END 2020-04-03 08:49 | disposition home or self-care (01) ==
LOC: ER 07:45
PROVIDERS: Emergency Medicine
DX: N12 Tubulo-interstitial nephritis, not specified as acute or chronic (principal); F17.210 Nicotine dependence, cigarettes, uncomplicated; Z79.899 Other long term (current) drug therapy; Z90.49 Acquired absence of other specified parts of digestive tract

== ENCOUNTER 2020-08-09 07:50 | Emergency (ER) | payer OTHER ==
[~2020-08-09] VITALS: Ht 160 cm; Wt 93.0 kg
[~2020-08-09 07:50] MED LIST changes: +PYRIDIUM200 MG PO
[2020-08-09] MEDS ORDERED: AUGMENTIN 875-1 EACH PO (08:19)
[2020-08-09] MEDS ORDERED: IBUPROFEN 800800 MG PO (08:19)
[2020-08-09 08:50] VITALS: BP 142/88
== END 2020-08-09 09:09 | disposition home or self-care (01) ==
LOC: ER 07:50
DX: K04.7 Periapical abscess without sinus (principal); F17.210 Nicotine dependence, cigarettes, uncomplicated; Z79.899 Other long term (current) drug therapy